=== PATIENT | male | born 1950 | race Caucasian/White ===

== ENCOUNTER → 2017-03-04 08:25 | Outpatient (CLI) | payer MEDICARE ==
[2014-07-09 09:40] VITALS: BMI 25.8
[~2017-03-04 08:25] MED LIST: BAYER CHEWABLE81 MG PO; FLAGYL500 MG PO; LEVAQUIN500 MG PO; MICARDIS80 MG PO; ZEGERID OTC 201 EACH PO
[2017-03-05 07:27] LABS: PSA - % FREE 19.4 % (()); PSA - FREE 1.03 ng/mL; PSA - TOTAL 5.3 ng/mL (0.0-4.0)
== END | disposition home or self-care (01) ==
LOC: D.LAB 08:25
DX: R97.20 Elevated prostate specific antigen [PSA] (principal)

== ENCOUNTER → 2017-12-07 09:15 | Outpatient (CLI) | payer MEDICARE ==
[2014-07-09 09:40] VITALS: BMI 25.8
== END | disposition home or self-care (01) ==
LOC: D.US 09:15
DX: I71.4 Abdominal aortic aneurysm, without rupture (principal)

== ENCOUNTER → 2017-12-14 12:52 | Outpatient (CLI) | payer MEDICARE ==
[2014-07-09 09:40] VITALS: BMI 25.8
== END | disposition home or self-care (01) ==
LOC: D.CT 12:52
DX: I71.4 Abdominal aortic aneurysm, without rupture (principal)

== ENCOUNTER 2018-06-26 01:58 | Emergency (ER) | payer MEDICARE ==
[~2018-06-26] VITALS: Ht 170.2 cm; Wt 62.7 kg
[2018-06-26 02:04] VITALS: BP 125/79; Ht 170.2 cm; Wt 62.7 kg
[2018-06-26] MEDS ORDERED: CIPRO500 MG PO (02:05)
[2018-06-26] MEDS ORDERED: CLEOCIN HCL300 MG PO (02:15)
== END 2018-06-26 02:36 | disposition home or self-care (01) ==
LOC: D.ER 01:58
DX: L02.413 Cutaneous abscess of right upper limb (principal); L03.113 Cellulitis of right upper limb; B95.62 Methicillin resistant Staphylococcus aureus infection as the cause of diseases classified elsewhere; I10 Essential (primary) hypertension; Z85.9 Personal history of malignant neoplasm, unspecified

== ENCOUNTER 2018-11-28 10:42 | Emergency (ER) | payer MEDICARE ==
[~2018-11-28] VITALS: Ht 170.2 cm; Wt 68.2 kg
[~2018-11-28 10:42] MED LIST changes: +CIPRO500 MG PO; +CLEOCIN HCL300 MG PO
[2018-11-28 11:02] VITALS: Ht 170.2 cm; Wt 68.2 kg
[2018-11-28 11:51] LABS: APPEARANCE TURBID (CLEAR); COLOR RED (YELLOW)
[2018-11-28 11:52] LABS: BACTERIA FEW /hpf (NONE SEEN); EPITHELIAL CELLS OCC /hpf (0-5); MUCUS <1+ /lpf (NONE SEEN); RED CELLS - URINE >50 /hpf (0-5)
[2018-11-28] MEDS ORDERED: LEVOFLOXACIN500 MG PO (12:50)
[2018-11-28 12:56] LABS: BASOPHILS 0.1 % (0-2); EOSINOPHILS 0.8 % (0-7); HEMATOCRIT 40.5 % (42.0-54.0); HEMOGLOBIN 13.8 g/dL (13.5-17.5); IMMATURE GRANULOCYTES 0.1 % (0-5); LYMPHOCYTES 14.4 % (15-50); MCH 29.3 pg (26.0-34.0); MCHC 34.1 g/dL (31.0-37.0); MEAN PLATELET VOLUME 9.4 fL (7.4-10.4); MONOCYTES 6.1 % (2-11); NEUTROPHILS 78.5 % (40-80); PLATELET COUNT 149 10x3/uL (130-400); RBC 4.71 10x6/uL (4.20-6.10); RDW 13.4 % (11.5-14.5); WBC 8.4 10x3/uL (4.8-10.8)
[2018-11-28 13:10] LABS: ALBUMIN 3.3 g/dL (3.4-5.0); ALKALINE PHOSPHATASE 81 U/L (46-116); ALT (SGPT) 21 U/L (10-68); BILIRUBIN - TOTAL 0.51 mg/dL (0.2-1.3); CALC OSMOLALITY 280 mosm/kg (275-300); CALCIUM 8.3 mg/dL (8.5-10.1); CARBON DIOXIDE 25.5 mmol/L (21.0-32.0); CHLORIDE - SERUM 105 mmol/L (98-107); CREATININE - SERUM 0.9 mg/dL (0.6-1.3); GLUCOSE 100 mg/dL (74-106); POTASSIUM - SERUM 3.8 mmol/L (3.5-5.1); PROTEIN - SERUM 6.6 g/dL (6.4-8.2); SODIUM 140 mmol/L (136-145); UREA NITROGEN 17 mg/dL (7-18); eGFR NON AFRICAN AMERICAN 89 mL/min (90-120)
[2018-11-28 14:00] VITALS: BP 98/64
== END 2018-11-28 14:00 | disposition home or self-care (01) ==
LOC: D.ER 10:42
PROVIDERS: Emergency Medicine
DX: N30.81 Other cystitis with hematuria (principal); N20.0 Calculus of kidney; I10 Essential (primary) hypertension